=== PATIENT | female | born 1960 | race Caucasian/White ===

== ENCOUNTER 2020-06-30 15:40 | Emergency (ER) | payer BC ==
[~2020-06-30] VITALS: Ht 160 cm; Wt 65.8 kg
[2020-06-30] MEDS ORDERED: ATIVAN1 M1 PO (15:54)
[2020-06-30] MEDS ORDERED: SERTRALINE HCL100 MG PO (15:54)
[2020-06-30 16:22] VITALS: BP 132/87
== END 2020-06-30 16:23 | disposition home or self-care (01) ==
LOC: M.ERS 15:40
DX: F41.9 Anxiety disorder, unspecified (principal); F13.20 Sedative, hypnotic or anxiolytic dependence, uncomplicated; Z79.899 Other long term (current) drug therapy